=== PATIENT | male | born 1985 | race Caucasian/White ===

== ENCOUNTER 2017-04-07 22:57 | Emergency (ER) | payer OTHER ==
[~2017-04-07] VITALS: Ht 180.3 cm; Wt 88.0 kg
[~2017-04-07 22:57] MED LIST: CLON.5 PO; NORV10TA PO; ZOFR4TAB3 PO
[2017-04-07 22:59] VITALS: BP 155/99; PULSE 122; RESP 16; TEMP 98; O2SAT 100
[2017-04-08] MEDS ORDERED: KETOROLAC TROMETHAMINE 30 MG/ML (IVP) VIAL IV PUSH ONE
[2017-04-08] MEDS ORDERED: ONDANSETRON HCL 4 MG/2 ML VIAL IV ONE
[2017-04-08] MEDS ORDERED: SODIUM CHLOR 0.9% 1000 ML INJ 1,000 ML IV ONE
[2017-04-08 00:21] VITALS: O2SAT 98
--- NOTE | 2017-04-08 00:30 | PD ---
HPI Chief Complaint: Flank/Kidney Pain Time Seen by Provider: 23:44 Travel History International Travel<30 days: No Contact w/Intl Traveler<30days: No Traveled to known affect area: No History of Present Illness HPI The patient is a 31 year old male who presents to the [facility] emergency department with a history of left flank pain and a history of kidney stones he reports that his left flank pain recurred at approximate 4 PM today. He reports the pain has been constant and sharp in character. He reports that it radiates around to the left groin. The patient reports that he last saw his urologist, , a month ago. He reports that at that time he underwent ultrasound and a CT scan of the abdomen and pelvis. The patient reports that he last underwent lithotripsy and ureteral stent placement in November 2015. The patient reports that he took a tramadol for pain prior to arrival. He reports that he is prescribed this related to his chronic back pain. He denies having any hematuria, dysuria, urinary frequency, or urinary urgency associated with this. He reports having nausea but no vomiting or diarrhea. He reports that he last moved his bowels earlier today. He denies having any blood in his stool or black or tarry stools. The patient denies any recent fevers, cough, congestion, neck pain, chest pain, shortness of breath, or neurologic symptoms. [facility] Past Medical History Narrative Medical The patient's past medical history is significant for hypertension, anxiety disorder, ureterolithiasis ADHD: Yes Blood Disorders: No Anxiety: Yes Depression: Yes Cancer: No Cardiovascular Problems: Yes (HIGH BP) Diabetes: No Diminished Hearing: No Endocrine: No Genitourinary: Yes (KIDNEY STONES) Hepatitis: No Hiatal Hernia: No Hypertension: Yes Immune Disorder: No Implanted Vascular Access Dvce: No Kidney Stones: Yes Musculoskeletal: No Neurologic: No Psychiatric: No Reproductive: No Respiratory: No Immunizations Current: Yes Thyroid Disease: No Tetanus Vaccination: < 5 Years Influenza Vaccination: No PNEUMOCCOCAL Vaccine (Year): 2 Past Surgical History Narrative Surgical The patient's past surgical history is significant for a ureteral stent placement, lithotripsy, nephrostomy tube placement. Abdominal Surgery: No AICD: No Body Medical Devices: NEPHROSTOMY TUBE Cardiac Surgery: No Ear Surgery: No Endocrine Surgery: No Eye Surgery: No Genitourinary Surgery: Yes (Multiple for kidney stones) Gynecologic Surgery: No Joint Replacement: No Oral Surgery: No Pacemaker: No Thoracic Surgery: No Other Surgery: Yes (Lithotripsy) Social History Alcohol Use: No Tobacco Use: No Substance Use: No Allergies-Medications (Allergen,Severity, Reaction): Coded Allergies: Penicillin (Verified Allergy, Severe, HIVES, 03/21/16) Reglan (Verified Allergy, Severe, PANIC ATTACK, 03/21/16) Ceclor (Verified Allergy, Intermediate, HIVES, 03/21/16) Reported Meds & Prescriptions Reported Meds & Active Scripts Active Lortab (Hydrocodone-Acetaminophen) 5-325 Mg Tab 1 Tab PO Q6H PRN Zofran ODT (Ondansetron HCl) 4 Mg Tab 4 Mg PO Q6 PRN May substitute, non-ODT form Norvasc (Amlodipine Besylate) 10 Mg Tab 10 Mg PO DAILY Reported Klonopin (Clonazepam) 0.5 Mg Tab 0.5 Mg PO DAILY Review of Systems Except as stated in HPI: all other systems reviewed are Neg General / Constitutional: No: Fever Eyes: No: Visual changes HENT: No: Headaches Cardiovascular: No: Chest Pain or Discomfort Respiratory: No: Shortness of Breath Gastrointestinal: Positive: Nausea, Abdominal Pain, No: Vomiting, Diarrhea, Hematemesis, Hematochezia, Constipation, Changes in Bowel Habits, Indigestion, Loss of Appetite Genitourinary: Positive: Flank Pain (left flank), No: Urgency, Frequency, Dysuria, Hematuria Musculoskeletal: No: Pain Skin: No Rash Neurologic: No: Weakness, Focal Abnormalities, Change in Mentation, Slurred Speech, Sensory Disturbance Psychiatric: No: Depression Endocrine: No: Polydipsia Hematologic/Lymphatic: No: Easy Bruising Physical Exam Narrative General: The patient is a well-developed well-nourished male in no acute distress. Head and Neck exam: Head is normocephalic atraumatic. Eyes: EOMI, pupils are equal round and reactive to light. Nose: Midline septum with pink mucous membranes Mouth: Dentition unremarkable. Moist mucus membranes. Posterior oropharynx is not erythematous. No tonsillar hypertrophy. Uvula midline. Airway patent. Neck: No palpable lymphadenopathy. No nuchal rigidity. No thyromegaly. Cardiovascular: Regular rate and rhythm without murmurs, gallops, or rubs. Lungs: Clear to auscultation bilaterally. No wheezes, rhonchi, or rales. Abdomen: Soft, without tenderness to palpation in all 4 quadrants of the abdomen. No guarding, rebound, or rigidity. Normal bowel sounds are audible. No tenderness on palpation of McBurney's point. Negative Cicero sign. Extremities: No clubbing, cyanosis, or edema. 2+ pulses in all 4 extremities. No calf tenderness on palpation. Back: No spinous process tenderness to palpation. Left-sided CVA tenderness on palpation. Neurologic Exam: Grossly nonfocal. Skin Exam: No rash noted. Intact skin that is warm and dry. Data Data Last Documented VS Vital Signs Date Time Temp Pulse Resp B/P Pulse Ox O2 Delivery O2 Flow Rate FiO2 04/08/17 00:21 98 Room Air 04/07/17 22:59 98.0 122 16 155/99 Orders Complete Blood Count With Diff (04/07/17 23:55) Comprehensive Metabolic Panel (04/07/17 23:55) Lipase (04/07/17 23:55) Urinalysis - C+S If Indicated (04/07/17 23:55) Iv Access Insert/Monitor (04/07/17 23:55) Ecg Monitoring (04/07/17 23:55) Oximetry (04/07/17 23:55) Sodium Chlor 0.9% 1000 Ml Inj (Ns 1000 M (04/08/17 00:00) Ondansetron Inj (Zofran Inj) (04/08/17 00:00) Ketorolac Inj (Toradol Inj) (04/08/17 00:00) Morphine Inj (Morphine Inj) (04/08/17 01:00) Ondansetron Inj (Zofran Inj) (04/08/17 01:00) Sodium Chlorid 0.9% 500 Ml Inj (Ns 500 M (04/08/17 01:00) Labs Laboratory Tests Test 04/07/17 23:45 White Blood Count 14.1 TH/MM3 Red Blood Count 6.07 MIL/MM3 Hemoglobin 17.4 GM/DL Hematocrit 50.5 % Mean Corpuscular Volume 83.1 FL Mean Corpuscular Hemoglobin 28.6 PG Mean Corpuscular Hemoglobin 34.4 % Concent Red Cell Distribution Width 13.1 % Platelet Count 221 TH/MM3 Mean Platelet Volume 10.7 FL Neutrophils (%) (Auto) 79.7 % Lymphocytes (%) (Auto) 13.7 % Monocytes (%) (Auto) 6.0 % Eosinophils (%) (Auto) 0.5 % Basophils (%) (Auto) 0.1 % Neutrophils # (Auto) 11.3 TH/MM3 Lymphocytes # (Auto) 1.9 TH/MM3 Monocytes # (Auto) 0.8 TH/MM3 Eosinophils # (Auto) 0.1 TH/MM3 Basophils # (Auto) 0.0 TH/MM3 CBC Comment DIFF FINAL Differential Comment Urine Color YELLOW Urine Turbidity CLEAR Urine pH 7.5 Urine Specific [place] 1.028 Urine Protein 30 mg/dL Urine Glucose (UA) NEG mg/dL Urine Ketones 40 mg/dL Urine Occult Blood NEG Urine Nitrite NEG Urine Bilirubin NEG Urine Urobilinogen LESS THAN 2.0 MG/DL Urine Leukocyte Esterase NEG Urine RBC 2 /hpf Urine WBC LESS THAN 1 /hpf Urine Mucus FEW /lpf Microscopic Urinalysis Comment CULT NOT INDICATED Sodium Level 139 MEQ/L Potassium Level 4.5 MEQ/L Chloride Level 102 MEQ/L Carbon Dioxide Level 29.9 MEQ/L Anion Gap 7 MEQ/L Blood Urea Nitrogen 14 MG/DL Creatinine 0.93 MG/DL Estimat Glomerular Filtration 94 ML/MIN Rate Random Glucose 101 MG/DL Calcium Level 10.4 MG/DL Total Bilirubin 0.6 MG/DL Aspartate Amino Transf 25 U/L (AST/SGOT) Alanine Aminotransferase 32 U/L (ALT/SGPT) Alkaline Phosphatase 135 U/L Total Protein 8.3 GM/DL Albumin 4.7 GM/DL Lipase 71 U/L MDM Medical Decision Making Medical Screen Exam Complete: Yes Emergency Medical Condition: Yes Medical Record Reviewed: Yes Differential Diagnosis Recurrent ureteral calculi, versus renal colic, versus drug-seeking behavior, versus musculoskeletal strain of the back Narrative Course During the course of the patients emergency department visit, the patients history, examination, and differential diagnosis were reviewed with the patient. The patient had IV access obtained and blood work sent for analysis. The patient was put on a monitoring and evaluation advisor with oximetry and blood pressure monitoring. As the patient recently underwent ultrasound and CT scan of the abdomen and pelvis and has had numerous CT scans in the past, I will attempt to avoid further radiation therapy at this time. We will assess the patient's kidney function and evaluated urinalysis for signs of blood that would suggest a ureteral calculi. The patient was initially provided Toradol 15 mg IV, normal saline 1 L IV fluid bolus, Zofran 4 mg IV. The patients laboratory studies were reviewed and remarkable for a white count of 14.1, hemoglobin 17.4, platelets 221 with 79.7 neutrophils, CMP is remarkable for a calcium of 10.4, alkaline phosphatase 135, total protein 8.3, lipase 71, urinalysis shows 30 protein, 40 ketones, few mucus, culture not indicated. The patient was given morphine 4 mg IV, Zofran 4 mg IV, and additional normal saline bolus of 500 mL. The patient will be discharged home with close follow-up with his urologist. The patient was instructed to avoid calcium rich foods and any supplements that contains calcium. The patient was instructed to stop tramadol and instead take Lortab as needed for pain. He was also given a prescription for Flomax. The patient is resting comfortably and feels better, is alert and in no distress. The patients results and examination findings were discussed with the patient. The repeat examination is unremarkable and benign. The history, exam, diagnostic testing, and current condition do not suggest any significant pathology to warrant further testing, continued ED treatment, admission, or surgical evaluation at this point. The vital signs have been stable. The patient does not have uncontrollable pain, intractable vomiting, or other significant symptoms. The patient's condition is stable and appropriate for discharge. The patient will pursue further outpatient evaluation with a primary care physician or other designated or consulting physician as indicated in the discharge instructions. The patient expressed understanding and was agreeable with this plan. Diagnosis Primary Impression: Acute left flank pain Referrals: Ollie Vasquez MD 2 days Patient Instructions: Flank Pain (ED), General Instructions, Kidney Stones (ED) Med/Other Pt SpecificInfo: Prescription(s) given Scripts Tamsulosin (Flomax)0.4 Mg Cap0.4 Mg PO HS #14 CAP Ref 0 Prov:Vani Lazo MD 04/08/17 Hydrocodone-Acetaminophen (Lortab)5-325 Mg Tab1 Tab PO Q6H PRN (PAIN) #12 TAB Ref 0 Prov:Vani Lazo MD 04/08/17 Disposition: 01 DISCHARGE HOME Condition: Stable Vani Lazo MD April 08, 2017 00:30
[2017-04-08 00:39] LABS: AUTOMATED NEUTROPHIL # 11.3 TH/MM3 (1.8-7.7); BASOPHIL % 0.1 % (0.0-2.0); EOSINOPHIL # 0.1 TH/MM3 (0-0.4); EOSINOPHIL % 0.5 % (0.0-4.0); HEMATOCRIT 50.5 % (39.0-51.0); HEMO FLAGS DIFF FINAL; LYMPH % 13.7 % (9.0-44.0); LYMPHOCYTE # 1.9 TH/MM3 (1.0-4.8); MEAN CELL VOLUME 83.1 FL (80.0-100.0); MEAN CORPUSCULAR HEMOGLOBIN 28.6 PG (27.0-34.0); MEAN CORPUSCULAR HGB CONC 34.4 % (32.0-36.0); NEUT % 79.7 % (16.0-70.0); PLATELET COUNT 221 TH/MM3 (150-450); RED BLOOD COUNT 6.07 MIL/MM3 (4.50-5.90); RED CELL DISTRIBUTION WIDTH 13.1 % (11.6-17.2); WHITE BLOOD COUNT 14.1 TH/MM3 (4.0-11.0)
[2017-04-08 00:58] LABS: ALT (GPT) 32 U/L (12-78); ANION GAP 7 MEQ/L (5-15); AST (GOT) 25 U/L (15-37); BICARBONATE 29.9 MEQ/L (21.0-32.0); BLOOD UREA NITROGEN 14 MG/DL (7-18); CHLORIDE 102 MEQ/L (98-107); GLOMERULAR FILTRATION RATE 94 ML/MIN (>89); POTASSIUM 4.5 MEQ/L (3.5-5.1); SODIUM (NA) 139 MEQ/L (136-145)
[2017-04-08 01:00] LABS: ALKALINE PHOSPHATASE 135 U/L (45-117); TOTAL BILIRUBIN ADULT 0.6 MG/DL (0.2-1.0)
[2017-04-08] MEDS ORDERED: SODIUM CHLORID 0.9% 500 ML INJ 500 ML IV ONE (01:00)
[2017-04-08] MEDS ORDERED: ONDANSETRON HCL 4 MG/2 ML VIAL IV PUSH ONE (01:00)
[2017-04-08] MEDS ORDERED: MORPHINE SULFATE 4 MG/ML INJ IV PUSH ONE (01:00)
[2017-04-08] MEDS ORDERED: HYDR-3533 PO (01:32)
[2017-04-08 01:38] LABS: BLOOD, URINE NEG (NEG); GLUCOSE,URINE NEG (NEG); KETONE, URINE 40 mg/dL (NEG); MUCUS URINE FEW /lpf (OCC); NITRITE,URINE NEG (NEG); PH, URINE 7.5 (5.0-8.5); URINE COLOR YELLOW (YELLW/STRAW)
[2017-04-08 02:26] LABS: COMMENT (UR) CULT NOT INDICATED; CULTURE IF INDICATED CULT NOT INDICATED
[2017-04-08] MEDS ORDERED: TAMS5CAP PO (02:31)
== END 2017-04-08 03:17 | disposition home or self-care (01) ==
LOC: NEPE 22:57
DX: R10.84 Generalized abdominal pain (principal); I10 Essential (primary) hypertension; F41.9 Anxiety disorder, unspecified; Z87.442 Personal history of urinary calculi
CPT/HCPCS: 80053; 81001; 83690; 85025; 96374; 96375; 96376; 99284; J1885; J2270; J2405; J7030; J7040

== ENCOUNTER 2017-10-01 11:53 | Observation (INO) | payer OTHER ==
[~2017-10-01] VITALS: Ht 185.4 cm; Wt 100.0 kg
[~2017-10-01 11:53] MED LIST changes: +HYDR-3533 PO; +TAMS5CAP PO
[2017-10-01 12:11] VITALS: BP 138/84; PULSE 90; RESP 14; TEMP 97.8; O2SAT 96
[2017-10-01] MEDS ORDERED: SODIUM CHLOR 0.9% 1000 ML INJ 1,000 ML IV ONE (12:15)
[2017-10-01] MEDS ORDERED: LORazepam 2 MG/ML VIAL IVS ONE (12:15)
[2017-10-01] MEDS ORDERED: SODIUM CHLORIDE 0.9% FLUSH 10 ML FLUSH IVF PRN (12:15)
[2017-10-01 12:20] VITALS: O2SAT 97
[2017-10-01] MEDS ORDERED: FOSPHENYTOIN INJ 1,000 MGPE in SODIUM CHLORIDE 0.9% INJ 50 ML IV ONE (12:30)
[2017-10-01 12:33] LABS: AUTOMATED NEUTROPHIL # 6.1 TH/MM3 (1.8-7.7); BASOPHIL % 0.5 % (0.0-2.0); EOSINOPHIL # 0.1 TH/MM3 (0-0.4); EOSINOPHIL % 0.8 % (0.0-4.0); HEMATOCRIT 46.8 % (39.0-51.0); HEMOGLOBIN 16.2 GM/DL (13.0-17.0); LYMPHOCYTE # 1.6 TH/MM3 (1.0-4.8); MEAN CELL VOLUME 85.4 FL (80.0-100.0); MEAN CORPUSCULAR HEMOGLOBIN 29.5 PG (27.0-34.0); MEAN CORPUSCULAR HGB CONC 34.5 % (32.0-36.0); MEAN PLATELET VOLUME 9.2 FL (7.0-11.0); MONO % 6.5 % (0.0-8.0); MONOCYTE # 0.5 TH/MM3 (0-0.9); NEUT % 73.2 % (16.0-70.0); PLATELET COUNT 227 TH/MM3 (150-450); RED BLOOD COUNT 5.48 MIL/MM3 (4.50-5.90); RED CELL DISTRIBUTION WIDTH 12.9 % (11.6-17.2); WHITE BLOOD COUNT 8.4 TH/MM3 (4.0-11.0)
[2017-10-01 12:52] LABS: ALBUMIN 3.8 GM/DL (3.4-5.0); AST (GOT) 17 U/L (15-37); BICARBONATE 23.5 MEQ/L (21.0-32.0); BLOOD UREA NITROGEN 8 MG/DL (7-18); CALCIUM 8.7 MG/DL (8.5-10.1); CHLORIDE 109 MEQ/L (98-107); CREATININE 1.16 MG/DL (0.60-1.30); GLOMERULAR FILTRATION RATE 73 ML/MIN (>89); GLUCOSE,RANDOM 117 MG/DL (74-106); SODIUM (NA) 141 MEQ/L (136-145)
[2017-10-01 12:53] LABS: ALT (GPT) 30 U/L (12-78)
[2017-10-01 12:55] LABS: ALKALINE PHOSPHATASE 90 U/L (45-117); TOTAL BILIRUBIN ADULT 0.5 MG/DL (0.2-1.0); TOTAL PROTEIN 7.1 GM/DL (6.4-8.2)
[2017-10-01] MEDS ORDERED: GABA300C5 PO (13:08)
[2017-10-01] MEDS ORDERED: LOSA25TA PO (13:08)
[2017-10-01] MEDS ORDERED: AMLO10TA2 PO (13:08)
[2017-10-01] MEDS ORDERED: TRAM50TA PO (13:08)
[2017-10-01] MEDS ORDERED: ESCI10TA PO (13:08)
[2017-10-01] MEDS ORDERED: ALPR0.5T3 PO (13:08)
--- NOTE | 2017-10-01 13:29 | RADRPT ---
EXAM DATE/TIME: 10/01/2017 13:04 [place] COMPARISON: No previous studies available for comparison. INDICATIONS : Syncope today. RADIATION DOSE: 56.35 CTDIvol (mGy) MEDICAL HISTORY : Seizures. Hypertension. Renal calculi. SURGICAL HISTORY : None. ENCOUNTER: Initial ACUITY: 1 day PAIN SCALE: 0/10 LOCATION: cranial TECHNIQUE: Multiple contiguous axial images were obtained of the head. Using automated exposure control and adj ustment of the mA and/or kV according to patient size, radiation dose was kept as low as reasonably a chievable to obtain optimal diagnostic quality images. DICOM format image data is available electro nically for review and comparison. FINDINGS: CEREBRUM: The ventricles are normal for age. No evidence of midline shift, mass lesion, hemorrhage or acute in farction. No extra-axial fluid collections are seen. POSTERIOR FOSSA: The cerebellum and brainstem are intact. The 4th ventricle is midline. The cerebellopontine angle i s unremarkable. EXTRACRANIAL: The visualized portion of the orbits is intact. SKULL: The calvaria is intact. No evidence of skull fracture. CONCLUSION: No acute disease. Walker Romo MD on October 01, 2017 at 13:27 Board Certified Radiologist. This report was verified electronically.
--- NOTE | 2017-10-01 13:38 | PD ---
HPI Chief Complaint: Seizure Time Seen by Provider: 12:17 Travel History International Travel<30 days: No Contact w/Intl Traveler<30days: No Traveled to known affect area: No History of Present Illness HPI 31-year-old male brought in by EMS status post unwitnessed seizure while at work at [employer]. Patient is now postictal. He has an abrasion to the right anterior scalp. He is alert and answering questions appropriately. Patient states he had a headache earlier but now has no headache or other pain. He does have a minor bite to the right posterior lateral tongue. He denies dental injury. He denies any other pain or injury. He is not nauseous. 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 Patient denies alcohol use. Denies any drug use. Patient states he had a seizure 6 years ago which was thought to be due to some medication he was on at the time. He was never diagnosed with seizure disorder, previous to today. Patient is allergic to cefaclor, metoclopramide, and penicillin. PFSH Past Medical History ADHD: Yes Blood Disorders: No Anxiety: Yes Depression: Yes Cancer: No Cardiovascular Problems: Yes (HIGH BP) Diabetes: No Diminished Hearing: No Endocrine: No Gastrointestinal Disorders: No Genitourinary: Yes (KIDNEY STONES) Hepatitis: No Hiatal Hernia: No Hypertension: Yes Immune Disorder: No Implanted Vascular Access Dvce: No Kidney Stones: Yes Musculoskeletal: No Neurologic: No Psychiatric: No Reproductive: No Respiratory: No Immunizations Current: Yes Seizures: Yes Thyroid Disease: No PNEUMOCCOCAL Vaccine (Year): 2 Past Surgical History Abdominal Surgery: No AICD: No Body Medical Devices: NEPHROSTOMY TUBE Cardiac Surgery: No Ear Surgery: No Endocrine Surgery: No Eye Surgery: No Genitourinary Surgery: Yes (Multiple for kidney stones) Gynecologic Surgery: No Joint Replacement: No Oral Surgery: No Pacemaker: No Thoracic Surgery: No Other Surgery: Yes (Lithotripsy) Social History Alcohol Use: No Tobacco Use: Yes (pack every 3 days ) Substance Use: No Allergies-Medications (Allergen,Severity, Reaction): Coded Allergies: metoclopramide (Unverified Allergy, Severe, PANIC ATTACK, 07/14/17) penicillin G (Unverified Allergy, Severe, HIVES, 07/14/17) cefaclor (Unverified Allergy, Intermediate, HIVES, 07/14/17) Reported Meds & Prescriptions Reported Meds & Active Scripts Active Reported Amlodipine (Amlodipine Besylate) 10 Mg Tab 10 Mg PO DAILY Losartan (Losartan Potassium) 25 Mg Tab 25 Mg PO DAILY Escitalopram (Escitalopram Oxalate) 10 Mg Tab 10 Mg PO DAILY Gabapentin 300 Mg Cap 300 Mg PO HS Alprazolam 0.5 Mg Tab 0.5 Mg PO Q8H PRN Tramadol (Tramadol HCl) 50 Mg Tab 50 Mg PO Q8H PRN Review of Systems Except as stated in HPI: all other systems reviewed are Neg General / Constitutional: No: Fever Eyes: No: Visual changes HENT: No: Headaches Cardiovascular: No: Chest Pain or Discomfort Respiratory: No: Shortness of Breath Gastrointestinal: No: Abdominal Pain Genitourinary: No: Dysuria Musculoskeletal: No: Pain Skin: No Rash Neurologic: Positive: Seizures (see history present illness), No: Weakness Psychiatric: No: Depression Endocrine: No: Polydipsia Hematologic/Lymphatic: No: Easy Bruising Physical Exam Narrative GENERAL: Patient appears postictal and in mild distress. SKIN: Warm and diaphoretic. Mild pallor. He has superficial abrasion to the right anterior upper forehead. No other signs of trauma noted. HEAD: Atraumatic. Normocephalic. Mild tenderness over the right upper forehead without obvious bony involvement. EYES: Pupils equal and round. No scleral icterus. No injection or drainage. No nystagmus. ENT: No nasal bleeding or discharge. Mucous membranes pink and moist. No dental injury. She has a small superficial bite [place] to the right lateral posterior tongue not requiring closure. Pharynx is clear. Airway is patent. NECK: Trachea midline. No bony tenderness or step-off. Range of motion is full and supple. CARDIOVASCULAR: Regular rate and rhythm. RESPIRATORY: No accessory muscle use. Clear to auscultation. Breath sounds equal bilaterally. GASTROINTESTINAL: Abdomen soft, non-tender, nondistended. Hepatic and splenic margins not palpable. MUSCULOSKELETAL: Extremities without clubbing, cyanosis, or edema. No obvious deformities. NEUROLOGICAL: Awake and alert. No obvious cranial nerve deficits. Motor grossly within normal limits. Five out of 5 muscle strength in the arms and legs. Normal speech. PSYCHIATRIC: Appropriate mood and affect; insight and judgment normal. Data Data Last Documented VS Vital Signs Date Time Temp Pulse Resp B/P (MAP) Pulse Ox O2 Delivery O2 Flow Rate FiO2 10/01/17 14:25 80 27 137/75 (95) 97 Room Air 10/01/17 12:11 97.8 Orders Orders Complete Blood Count With Diff (10/01/17 12:15) Alcohol (Ethanol) (10/01/17 12:15) Drug Screen, Random Urine (10/01/17 12:15) Electrocardiogram (10/01/17 ) Ct Brain W/O Iv Contrast(Rout) (10/01/17 ) Blood Glucose (10/01/17 12:15) Ecg Monitoring (10/01/17 12:15) Iv Access Insert/Monitor (10/01/17 12:15) Oximetry (10/01/17 12:15) Comprehensive Metabolic Panel (10/01/17 12:15) Sodium Chlor 0.9% 1000 Ml Inj (Ns 1000 M (10/01/17 12:15) Sodium Chloride 0.9% Flush (Ns Flush) (10/01/17 12:15) Lorazepam Inj (Ativan Inj) (10/01/17 12:15) Urinalysis - C+S If Indicated (10/01/17 12:15) Fosphenytoin Inj (Cerebyx Inj) (10/01/17 12:30) Admit Order (Ed Use Only) (10/01/17 15:36) Labs Laboratory Tests Test 10/01/17 12:28 10/01/17 14:30 White Blood Count 8.4 TH/MM3 Red Blood Count 5.48 MIL/MM3 Hemoglobin 16.2 GM/DL Hematocrit 46.8 % Mean Corpuscular Volume 85.4 FL Mean Corpuscular Hemoglobin 29.5 PG Mean Corpuscular Hemoglobin Concent 34.5 % Red Cell Distribution Width 12.9 % Platelet Count 227 TH/MM3 Mean Platelet Volume 9.2 FL Neutrophils (%) (Auto) 73.2 % Lymphocytes (%) (Auto) 19.0 % Monocytes (%) (Auto) 6.5 % Eosinophils (%) (Auto) 0.8 % Basophils (%) (Auto) 0.5 % Neutrophils # (Auto) 6.1 TH/MM3 Lymphocytes # (Auto) 1.6 TH/MM3 Monocytes # (Auto) 0.5 TH/MM3 Eosinophils # (Auto) 0.1 TH/MM3 Basophils # (Auto) 0.0 TH/MM3 CBC Comment DIFF FINAL Differential Comment Blood Urea Nitrogen 8 MG/DL Creatinine 1.16 MG/DL Random Glucose 117 MG/DL Total Protein 7.1 GM/DL Albumin 3.8 GM/DL Calcium Level 8.7 MG/DL Alkaline Phosphatase 90 U/L Aspartate Amino Transf (AST/SGOT) 17 U/L Alanine Aminotransferase (ALT/SGPT) 30 U/L Total Bilirubin 0.5 MG/DL Sodium Level 141 MEQ/L Potassium Level 3.6 MEQ/L Chloride Level 109 MEQ/L Carbon Dioxide Level 23.5 MEQ/L Anion Gap 9 MEQ/L Estimat Glomerular Filtration Rate 73 ML/MIN Ethyl Alcohol Level LESS THAN 3 MG/DL Urine Color YELLOW Urine Turbidity CLEAR Urine pH 6.0 Urine Specific [place] 1.018 Urine Protein 30 mg/dL Urine Glucose (UA) NEG mg/dL Urine Ketones TRACE mg/dL Urine Occult Blood SMALL Urine Nitrite NEG Urine Bilirubin NEG Urine Urobilinogen LESS THAN 2.0 MG/DL Urine Leukocyte Esterase NEG Urine RBC 5 /hpf Urine WBC 1 /hpf Urine Mucus FEW /lpf Microscopic Urinalysis Comment CULT NOT INDICATED Urine Opiates Screen NEG Urine Barbiturates Screen NEG Urine Amphetamines Screen NEG Urine Benzodiazepines Screen POS Urine Cocaine Screen NEG Urine Cannabinoids Screen NEG MDM Medical Decision Making Medical Screen Exam Complete: Yes Emergency Medical Condition: Yes Medical Record Reviewed: Yes Differential Diagnosis New-onset seizure. Headache. Intracranial bleed. Electrolyte balance. Alcohol withdrawal. Narrative Course Patient appears postictal medically stable at time of exam. Labs ordered including CBC, CMP, urinalysis, serum alcohol level, urine drug screen. EKG shows sinus rhythm with no significant findings. IV access is obtained and the patient is given thousand and a normal saline bolus, 1000 mg fosphenytoin IV, and [address] scan of the head is ordered. CT scan shows no acute process per radiologist. CBC is unremarkable. CMP is unremarkable except chloride of 109, GFR 73, random glucose 117. Serum alcohol is less than 3. Urinalysis shows no signs of infection. Urine tox screen is negative except for benzodiazepines which he was given upon arrival. Further history is noted by the nursing staff that the patient was taking Xanax 1 mg up to 3 times daily an anxiety disorder which he stopped one week ago. Patient is discussed with Dr. Celis who recommends discussing the patient with a neurologist for plan of discharge and follow-up. Call was placed to Dr. Aguilar, neurologist harpoon engagement planning operator, who did not feel further antiseizure medicines were warranted at this time, recommends admitting the patient to observation, get an MRI as well as EEG and consult him for follow-up. Call was placed to the residents for admission to observation. Patient was discussed with Dr. Blevins, who agreed to admit patient to observation. Diagnosis Primary Impression: Single unprovoked seizure Admitting Information Admitting Physician Requests: Observation Condition: Stable Travis Ortiz Oct 01, 2017 13:38
[2017-10-01 14:25] VITALS: BP 137/75; PULSE 80; RESP 27; O2SAT 97
[2017-10-01 14:51] LABS: BILIRUBIN, URINE NEG (NEG); BLOOD, URINE SMALL (NEG); GLUCOSE,URINE NEG (NEG); KETONE, URINE TRACE mg/dL (NEG); MUCUS URINE FEW /lpf (OCC); NITRITE,URINE NEG (NEG); URINE COLOR YELLOW (YELLW/STRAW); URINE LEUKOCYTE ESTERASE NEG (NEG)
[2017-10-01] MEDS ORDERED: ACETAMINOPHEN 325 MG TAB PO PRN (15:45)
[2017-10-01] MEDS ORDERED: ONDANSETRON HCL 4 MG/2 ML VIAL IV PRN (15:45)
[2017-10-01] MEDS ORDERED: LORazepam 2 MG/ML VIAL IV PUSH PRN (15:45)
[2017-10-01] MEDS ORDERED: SODIUM CHLORIDE 0.9% FLUSH 10 ML FLUSH IV FLUSH PRN (15:45)
--- NOTE | 2017-10-01 16:04 | HHI.HP ---
HPI Service [facility]ists Primary Care Physician Alvarado Ba MD Admission Diagnosis Unprovoked Seizure/New Onset Chief Complaint: seizure Travel History International Travel<30 Days: No Contact w/Intl Traveler <30 Da: No Traveled to Known Affected Are: No History of Present Illness Pt is 31 yo with anxiety/panic d/o, htn, nephrolithiasis problems. Was at work today and while standing and just talking with a friend, suddenly fell to the ground and began having a tonic clonic type sz for unclear length of time. abrasions on occipital scalp and right forehead. When he awoke was confused and post ictal. no loss of bowel/bladder function but bit tongue. Pt stopped taking his xanax about 4 days ago. He was taking it tid prescribed by psychiatry. He also took an ultram this AM for "left flank/hydro Pain". hasn't taken one in awhile but apparently had a sz 6 yrs ago felt related to ultram. Review of Systems Other seizure Past Family Social History Past Medical History nephrolithiasis since 2009 at [place] pt has had multiple cysto with stent. had nephrotomy and nephrostomy tube placed. lithostripsy. 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" sz 6yrs ago related to "ultram" anxiety/panic Reported Medications Amlodipine (Amlodipine Besylate) 10 Mg Tab 10 Mg PO DAILY Losartan (Losartan Potassium) 25 Mg Tab 25 Mg PO DAILY Escitalopram (Escitalopram Oxalate) 10 Mg Tab 10 Mg PO DAILY Gabapentin 300 Mg Cap 900 Mg PO HS Alprazolam 0.5 Mg Tab 0.5 Mg PO Q8H PRN Tramadol (Tramadol HCl) 50 Mg Tab 50 Mg PO Q8H PRN Allergies: Coded Allergies: metoclopramide (Unverified Allergy, Severe, PANIC ATTACK, 07/14/17) penicillin G (Unverified Allergy, Severe, HIVES, 07/14/17) cefaclor (Unverified Allergy, Intermediate, HIVES, 07/14/17) Family History nc Social History 1/4ppd tobacco very rare etoh Physical Exam Vital Signs abrasions right forehead and post scalp oriented heart reg lung cta abd s/nt ext no edema Vital Signs Date Time Temp Pulse Resp B/P (MAP) Pulse Ox O2 Delivery O2 Flow Rate FiO2 11/2/17 14:25 80 27 137/75 (95) 97 Room Air 10/01/17 12:20 97 Room Air 10/01/17 12:13 78 14 96 Room Air 10/01/17 12:11 97.8 90 14 138/84 (102) 96 Laboratory Laboratory Tests Test 10/01/17 12:28 10/01/17 14:30 White Blood Count 8.4 Red Blood Count 5.48 Hemoglobin 16.2 Hematocrit 46.8 Mean Corpuscular Volume 85.4 Mean Corpuscular Hemoglobin 29.5 Mean Corpuscular Hemoglobin Concent 34.5 Red Cell Distribution Width 12.9 Platelet Count 227 Mean Platelet Volume 9.2 Neutrophils (%) (Auto) 73.2 Lymphocytes (%) (Auto) 19.0 Monocytes (%) (Auto) 6.5 Eosinophils (%) (Auto) 0.8 Basophils (%) (Auto) 0.5 Neutrophils # (Auto) 6.1 Lymphocytes # (Auto) 1.6 Monocytes # (Auto) 0.5 Eosinophils # (Auto) 0.1 Basophils # (Auto) 0.0 CBC Comment DIFF FINAL Differential Comment Blood Urea Nitrogen 8 Creatinine 1.16 Random Glucose 117 Total Protein 7.1 Albumin 3.8 Calcium Level 8.7 Alkaline Phosphatase 90 Aspartate Amino Transf (AST/SGOT) 17 Alanine Aminotransferase (ALT/SGPT) 30 Total Bilirubin 0.5 Sodium Level 141 Potassium Level 3.6 Chloride Level 109 Carbon Dioxide Level 23.5 Anion Gap 9 Estimat Glomerular Filtration Rate 73 Ethyl Alcohol Level LESS THAN 3 Urine Color YELLOW Urine Turbidity CLEAR Urine pH 6.0 Urine Specific [place] 1.018 Urine Protein 30 Urine Glucose (UA) NEG Urine Ketones TRACE Urine Occult Blood SMALL Urine Nitrite NEG Urine Bilirubin NEG Urine Urobilinogen LESS THAN 2.0 Urine Leukocyte Esterase NEG Urine RBC 5 Urine WBC 1 Urine Mucus FEW Microscopic Urinalysis Comment CULT NOT INDICATED Urine Opiates Screen NEG Urine Barbiturates Screen NEG Urine Amphetamines Screen NEG Urine Benzodiazepines Screen POS Urine Cocaine Screen NEG Urine Cannabinoids Screen NEG Result Diagram: 10/01/17 1228 10/01/17 1228 Caprini VTE Risk Assessment Caprini Risk Assessment Model Point Value = 1 Point Value = 2 Point Value = 3 Point Value = 5 Age 41-60 Minor surgery BMI > 25 kg/m2 Swollen legs Varicose veins or History of unexplained or recurrent spontaneous Oral contraceptives or hormone replacement Sepsis (< 1 month) Serious lung disease, including pneumonia (< 1 month) Abnormal pulmonary function Acute myocardial infarction Congestive heart failure (< 1 month) History of inflammatory bowel disease Medical patient at bed rest Age 61-74 Arthroscopic surgery Major open surgery (> 45 min) Laparoscopic surgery (> 45 min) Malignancy Confined to bed (> 72 hours) Immobilizing plaster cast Central venous access Age >= 75 History of VTE Family history of VTE Factor V Leiden Prothrombin [id number] Lupus anticoagulant Anticardiolipin antibodies Elevated serum homocysteine Heparin-induced thrombocytopenia Other congenital or acquired thrombophilia Stroke (< 1 month) Elective arthroplasty Hip, pelvis, or leg fracture Acute spinal cord injury (< 1 month) Prophylaxis Regimen Total Risk Factor Score Risk Level Prophylaxis Regimen 0-1 Low Early ambulation 2 Moderate Order ONE of the following: *Sequential Compression Device (SCD) *Heparin 5000 units SQ BID 3-4 Higher Order ONE of the following medications: *Heparin 5000 units SQ TID *Enoxaparin/Lovenox 40 mg SQ daily (WT < 150 kg, CrCl > 30 mL/min) *Enoxaparin/Lovenox 30 mg SQ daily (WT < 150 kg, CrCl > 10-29 mL/min) *Enoxaparin/Lovenox 30 mg SQ BID (WT < 150 kg, CrCl > 30 mL/min) AND/OR *Sequential Compression Device (SCD) 5 or more Highest Order ONE of the following medications: *Heparin 5000 units SQ TID (Preferred with Epidurals) *Enoxaparin/Lovenox 40 mg SQ daily (WT < 150 kg, CrCl > 30 mL/min) *Enoxaparin/Lovenox 30 mg SQ daily (WT < 150 kg, CrCl > 10-29 mL/min) *Enoxaparin/Lovenox 30 mg SQ BID (WT < 150 kg, CrCl > 30 mL/min) AND *Sequential Compression Device (SCD) Assessment and Plan Problem List: (1) Single unprovoked seizure ICD Codes: R56.9 - Unspecified convulsions Status: Acute Plan: Pt is 31 yo with anxiety/panic d/o, htn, nephrolithiasis problems. Was at work today and while standing and just talking with a friend, suddenly fell to the ground and began having a tonic clonic type sz for unclear length of time. abrasions on occipital scalp and right forehead. When he awoke was confused and post ictal. no loss of bowel/bladder function but bit tongue. Pt stopped taking his xanax about 4 days ago. He was taking it tid prescribed by psychiatry. He also took an ultram this AM for "left flank/hydro Pain". hasn't taken one in awhile but apparently had a sz 6 yrs ago felt related to ultram. ..so the sz may be related to the ultram in setting of xanax w/d. discussed with DR Novoa MRI/EEG today monitor overnight taper the xanax over the next 4 weeks. If stable overnight and mri/eeg negative then d/c home f/u [address] novoa no driving x 6months. (2) Hypertension ICD Codes: I10 - Hypertension Status: Chronic Teja Blevins MD Oct 01, 2017 16:04
--- NOTE | 2017-10-01 17:44 | MB ---
cc: ABBY DOE DATE OF CONSULTATION 10/01/17 REASON FOR CONSULTATION Seizure. HISTORY OF PRESENT ILLNESS Mr. Warren is a pleasant 31-year-old male who had a seizure today at work. He works at [employer]. He suddenly lost consciousness and had generalized tonic-clonic activity for several minutes after which he was postictal, was confused and had no recall. He is back to normal at the present time. He does relate a seizure several years ago associated with Ultram usage. He states he does take Xanax routinely about 0.5 mg t.i.d. for panic disorder but stopped this abruptly on Thursday. He took some Ultram today for pain as well. He has no history in the past of head trauma or meningitis. No family history of seizure disorder. PAST MEDICAL HISTORY 1. History of hypertension, 2. History of seizures several years ago related to Ultram usage 3. History of ureteral problems requiring surgery since childhood with nephrostomy tube in place 4. Multiple kidney stones, 5. Lithotripsy 6. History of panic attacks ALLERGIES PENICILLIN METOCLOPRAMIDE CECLOR MEDICATIONS At home 1. Amlodipine 2. Losartan 3. Gabapentin 4. Xanax 0.5 mg t.i.d., 5. Tramadol 6. Lexapro. NEUROLOGIC EXAMINATION VITAL SIGNS: Blood pressure 137/75, pulse 80, respiratory rate is 27, temperature 97.8 degrees. Higher cortical function - he is alert, oriented x3. Speech is normal. Cranial nerves intact. Motor exam reveals 5/5 strength of all groups. There is no drift. Reflexes are symmetric. IMAGING STUDIES CT of the brain is normal. LABORATORY DATA White count 8400, hemoglobin 16.2, hematocrit 46.8%, platelet count 227,000. Sodium is 141, potassium 3.6, chloride 109, CO2 24, BUN is 80, creatinine 1.16, GFR 73, glucose 117. Liver function tests are normal. IMPRESSION Seizure, probably related to Xanax withdrawal as well as Ultram usage. RECOMMENDATIONS I do not recommend any long-term anticonvulsants at the present time but would obtain an EEG as well as an MRI of the brain. Would start him on Xanax 0.5 mg b.i.d. for 2 weeks then taper to one a day for 2 weeks and then stop. I have recommended never to take Ultram again for the patient. He should not drive for at least six months frp, being seizure-free. From a neurologic standpoint, if the patient is stable overnight and the MRI and EEG normal, he should be fine to be discharged tomorrow. Follow with me in my office in 1-2 weeks. I told him no driving for 6 months. MD KIKO Villafuerte/ /3:49 PM /5:35 PM
[2017-10-01] MEDS ORDERED: GADODIAMIDE PF 287 MG/ML 20 ML VIAL (for RAD MRI) IVCONTRAST ONE (17:58)
--- NOTE | 2017-10-01 18:21 | RADRPT ---
EXAM DATE/TIME: 10/01/2017 17:41 [place] COMPARISON: CT BRAIN W/O CONTRAST, October 01, 2017, 13:04. INDICATIONS : Seizures. Syncope CONTRAST: 20 cc Omniscan (gadodiamide) IV MEDICAL HISTORY : Hypertension. Hydronephrosis. SURGICAL HISTORY : Ureter untwisted. ENCOUNTER: Initial ACUITY: 1 day PAIN SCORE: 0/10 LOCATION: Head. TECHNIQUE: Multiplanar, multisequence MRI of the brain was performed both prior to and following the administrat ion of paramagnetic contrast. FINDINGS: CEREBRUM: The ventricles are normal for age. No evidence of midline shift, mass lesion, hemorrhage or acute in farction. No extraaxial fluid collections are seen. The pituitary gland and suprasellar cistern are normal in configuration. WHITE MATTER: No significant signal abnormalities are seen in the white matter. POSTERIOR FOSSA: The cerebellum and brainstem are intact. The 4th ventricle is midline. The cerebellopontine angle is unremarkable. The cerebellar tonsils are normal in position. DIFFUSION IMAGING: No focal areas of restricted diffusion are seen. No evidence of acute infarction. EXTRACRANIAL: The visualized portions of the orbits and paranasal sinuses are unremarkable. POST-CONTRAST: No abnormal areas of parenchymal or dural enhancement. No evidence of blood-brain barrier breakdown. CONCLUSION: Unremarkable MRI with no hemorrhage, mass or infarction. Chaka Abdalla MD on October 01, 2017 at 18:17 Board Certified Radiologist. This report was verified electronically.
[2017-10-01] MEDS: SODIUM CHLORIDE 0.9% FLUSH 10 ML FLUSH IV FLUSH SCH (19:51)
[2017-10-01] MEDS: ALPRAZolam 0.5 MG TAB PO SCH (19:51)
[2017-10-01 20:21] VITALS: BP 119/66; PULSE 81; RESP 18; TEMP 98.3; O2SAT 96
[2017-10-01] MEDS ORDERED: GABAPENTIN 300 MG CAP PO SCH (21:00)
[2017-10-02 00:03] VITALS: BP 140/76; PULSE 84; RESP 20; TEMP 98.5; O2SAT 97
[2017-10-02 00:06] VITALS: PULSE 88
[2017-10-02 04:05] VITALS: PULSE 65
[2017-10-02 04:18] VITALS: BP 130/74; PULSE 70; RESP 18; TEMP 98.7; O2SAT 96
[2017-10-02 07:30] VITALS: BP 123/80; PULSE 69; RESP 22; TEMP 98.2; O2SAT 96
--- NOTE | 2017-10-02 07:58 | HHI.PR ---
Subjective Remarks No seizure activity overnight Pt reports some mild occipital headache which has been presented since he hit the ground yesterday Objective Vitals Vital Signs Date Time Temp Pulse Resp B/P (MAP) Pulse Ox O2 Delivery O2 Flow Rate FiO2 10/02/17 07:30 98.2 69 22 123/80 (94) 96 10/02/17 04:18 98.7 70 18 130/74 (92) 96 10/02/17 04:05 65 10/02/17 00:06 88 10/02/17 00:03 98.5 84 20 140/76 (97) 97 10/01/17 20:21 98.3 81 18 119/66 (83) 96 10/01/17 17:06 (95) 10/01/17 14:25 80 27 137/75 (95) 97 Room Air 10/01/17 12:20 97 Room Air 10/01/17 12:13 78 14 96 Room Air 10/01/17 12:11 97.8 90 14 138/84 (102) 96 Result Diagram: 10/01/17 1228 10/01/17 1228 Other Results Laboratory Tests Test 10/01/17 12:28 10/01/17 14:30 White Blood Count 8.4 TH/MM3 Red Blood Count 5.48 MIL/MM3 Hemoglobin 16.2 GM/DL Hematocrit 46.8 % Mean Corpuscular Volume 85.4 FL Mean Corpuscular Hemoglobin 29.5 PG Mean Corpuscular Hemoglobin Concent 34.5 % Red Cell Distribution Width 12.9 % Platelet Count 227 TH/MM3 Mean Platelet Volume 9.2 FL Neutrophils (%) (Auto) 73.2 % Lymphocytes (%) (Auto) 19.0 % Monocytes (%) (Auto) 6.5 % Eosinophils (%) (Auto) 0.8 % Basophils (%) (Auto) 0.5 % Neutrophils # (Auto) 6.1 TH/MM3 Lymphocytes # (Auto) 1.6 TH/MM3 Monocytes # (Auto) 0.5 TH/MM3 Eosinophils # (Auto) 0.1 TH/MM3 Basophils # (Auto) 0.0 TH/MM3 CBC Comment DIFF FINAL Differential Comment Blood Urea Nitrogen 8 MG/DL Creatinine 1.16 MG/DL Random Glucose 117 MG/DL Total Protein 7.1 GM/DL Albumin 3.8 GM/DL Calcium Level 8.7 MG/DL Alkaline Phosphatase 90 U/L Aspartate Amino Transf (AST/SGOT) 17 U/L Alanine Aminotransferase (ALT/SGPT) 30 U/L Total Bilirubin 0.5 MG/DL Sodium Level 141 MEQ/L Potassium Level 3.6 MEQ/L Chloride Level 109 MEQ/L Carbon Dioxide Level 23.5 MEQ/L Anion Gap 9 MEQ/L Estimat Glomerular Filtration Rate 73 ML/MIN Ethyl Alcohol Level LESS THAN 3 MG/DL Urine Color YELLOW Urine Turbidity CLEAR Urine pH 6.0 Urine Specific [place] 1.018 Urine Protein 30 mg/dL Urine Glucose (UA) NEG mg/dL Urine Ketones TRACE mg/dL Urine Occult Blood SMALL Urine Nitrite NEG Urine Bilirubin NEG Urine Urobilinogen LESS THAN 2.0 MG/DL Urine Leukocyte Esterase NEG Urine RBC 5 /hpf Urine WBC 1 /hpf Urine Mucus FEW /lpf Microscopic Urinalysis Comment CULT NOT INDICATED Urine Opiates Screen NEG Urine Barbiturates Screen NEG Urine Amphetamines Screen NEG Urine Benzodiazepines Screen POS Urine Cocaine Screen NEG Urine Cannabinoids Screen NEG Imaging Last Impressions Head CT 10/01/17 0000 Signed Impressions: Service Date/Time: September 13:04 - CONCLUSION: No acute disease. Walker Romo MD Brain MRI 10/01/17 0000 Signed Impressions: Service Date/Time: September 17:41 - CONCLUSION: Unremarkable MRI with no hemorrhage, mass or infarction. Chaka Abdalla MD Objective Remarks General: NAD, AAox3 Chest: CTA Cardiac: Regular Abd: +BS, soft ND/NT Ext: No edema A/P Problem List: (1) Single unprovoked seizure ICD Codes: R56.9 - Unspecified convulsions Status: Acute Plan: - Pt is 31 yo with anxiety/panic d/o, htn, nephrolithiasis problems. Was at work on 10/01 and while standing and just talking with a friend, suddenly fell to the ground and began having a tonic clonic type sz for unclear length of time. He sustained abrasions on occipital scalp and right forehead. When he awoke he was confused and post ictal. no loss of bowel/bladder function but bit tongue. Pt stopped taking his Xanax about 4 days prior to admission. He was taking it TID prescribed by psychiatry. He also took an Ultram on the morning of admission for "left flank/hydro pain." He hasn't taken one in awhile but apparently had a sz 6 yrs ago felt related to Ultram. The sz may be related to the Ultram in setting of xanax w/d. - Neurology following. - MRI (10/01) --> Unremarkable - EEG (10/02) --> pending. - Pt will need to taper the Xanax over the next 4 weeks. - After EEG performed today we will d/c home to f/u [address] Aguilar - NO driving x 6months. (2) Hypertension ICD Codes: I10 - Hypertension Status: Chronic Assessment and Plan Patient examined. Assessment and plan formulated with Maritza Chatman PA-C. I agree with the above. seizure related to xanax w/d and ultram no driving x 6months f/u dr Aguilar this week. Maritza Chatman Oct 02, 2017 07:58 Teja Blevins MD Oct 02, 2017 10:28
[2017-10-02] MEDS: SODIUM CHLORIDE 0.9% FLUSH 10 ML FLUSH IV FLUSH SCH (08:07)
[2017-10-02] MEDS: ALPRAZolam 0.5 MG TAB PO SCH (08:07)
--- NOTE | 2017-10-02 08:10 | HHI.DCPOC ---
Discharge Care Plan Diagnosis: (1) Single unprovoked seizure (2) Hypertension (3) Hyperlipidemia (4) ADHD (attention deficit hyperactivity disorder) Goals to Promote Your Health - Patient is to taper off the Xanax 0.5mg, to be taken twice daily x 2 weeks , then decrease to once daily x 2 weeks, then stop - NO DRIVING for 6 months - He is to followup with Dr. Aguilar in 1 week, call for an appt - He is to followup with his PCP, Dr. Ba, in 1 week, call for an appt. Directions to Meet Your Goals Take your medications as prescribed Follow your dietary instruction Follow activity as directed Keep your appointments as scheduled Take your immunizations and boosters as scheduled If your symptoms worsen call your PCP, if no PCP go to Urgent Care Center or Emergency Room Smoking is Dangerous to Your Health. Avoid second hand smoke Call the 24-hour hour crisis hotline for domestic abuse at Maritza Chatman Oct 02, 2017 08:10
[2017-10-02 08:21] VITALS: PULSE 65
[2017-10-02] MEDS ORDERED: ESCITALOPRAM OXALATE 10 MG TAB PO SCH (09:00)
[2017-10-02] MEDS ORDERED: LOSARTAN 25 MG TAB PO SCH (09:00)
--- NOTE | 2017-10-02 09:13 | EKG ---
Date Performed: 10/01/2017 Time Performed: 12:44:12 PTAGE: 31 years EKG: Sinus rhythm NORMAL ECG WARNING: DATA QUALITY MAY AFFECT INTERPRETATION NO PREVIOUS TRACING DOCTOR: Adam Howard Interpretating Date/Time 10/02/2017 09:11:35
[2017-10-02] MEDS ORDERED: ALPR0.5T3 PO ×3 (10:26→10:31)
--- NOTE | 2017-10-02 11:42 | MG ---
cc: JENNI BURGOS MD Lab No: [id number]____ Date: 10/02/2017 Age: 31 Sex: M Race: __ DATE OF [address] Aguilar MEDICAL HISTORY 1. History of seizures. 2. Hypertension 3. Kidney stones 4. ADHD 5. Depression/anxiety 6. Caffeine and tobacco abuse Presented with unwitnessed seizure, looked postictal when EMS arrived, abrasion on the right anterior scalp, minor bite to the right posterolateral tongue. MEDICATIONS 1. Xanax 2. Gabapentin 3. Cozaar 4. Lexapro 5. Norvasc DESCRIPTION The background rhythm is 5-6 Hz theta superimposed by excess beta activity. During the recording, there was drop out of the background rhythm with more slowing of the background with the appearance of K-complexes transitioning to sleep state. Intermittent muscle and movement artifact are seen during the recording. Hyperventilation did not change the background activity. Photic stimulation did not elicit a driving response. There were no electrographic seizures or epileptiform discharges noted during the recording. INTERPRETATION This is a normal awake, drowsy and asleep EEG. Beta activity is a nonspecific finding that may be related to medication effects like benzos and barbiturates.Absence of electrographic seizures or epileptiform discharges does not rule out the diagnosis of epilepsy. Clinical correlation is recommended. MD JEREMIE Smith/DJL /11:16 AM /11:32 AM [facility]ITAL[facility]ij[facility]
== END 2017-10-02 11:42 | disposition home or self-care (01) ==
LOC: NEPE 11:53 → NEDA 15:39 → NEPHCDU 16:59
PROVIDERS: ADMIT Hospitalist; ATTEND Hospitalist
DX: R56.9 Unspecified convulsions (principal); F13.239 Sedative, hypnotic or anxiolytic dependence with withdrawal, unspecified; I10 Essential (primary) hypertension; E78.5 Hyperlipidemia, unspecified; F90.9 Attention-deficit hyperactivity disorder, unspecified type; N20.0 Calculus of kidney; F41.0 Panic disorder [episodic paroxysmal anxiety]; Z72.0 Tobacco use; Z88.0 Allergy status to penicillin; W19.XXXA Unspecified fall, initial encounter
CPT/HCPCS: 70450; 70553; 80053; 80307; 81001; 85025; 93005; 95819; 96365; 96375; 99285; A9579; G0378; J2060; J2405; J7030; Q2009

== ENCOUNTER 2018-03-04 18:57 | Emergency (ER) | payer SELFPAY ==
[~2018-03-04] VITALS: Ht 182.9 cm; Wt 85.0 kg
[~2018-03-04 18:57] MED LIST changes: +ALPR0.5T3 PO; +AMLO10TA2 PO; -CLON.5 PO; -HYDR-3533 PO; +LOSA25TA PO; -NORV10TA PO; +PERC5TAB12 PO; -ZOFR4TAB3 PO
[2018-03-04 19:45] VITALS: BP 149/90; PULSE 106; RESP 18; TEMP 98.2; O2SAT 99
[2018-03-04] MEDS ORDERED: MORPHINE SULFATE 2 MG/ML SYRINGE IV PUSH ONE ×2 (21:00→22:00)
--- NOTE | 2018-03-04 21:02 | PD ---
HPI Chief Complaint: Flank/Kidney Pain Time Seen by Provider: 20:55 Travel History International Travel<30 days: No Contact w/Intl Traveler<30days: No Traveled to known affect area: No History of Present Illness HPI 32-year-old male with history of nephrolithiasis here for evaluation of left flank pain. The patient reports that the pain started at around 3:00 PM, has been constant, 9 out of 10, radiates to his left lower abdomen, feels like previous kidney stones. There is no modifying factors. No hematuria or dysuria. He has had nausea but no vomiting. He has taken Percocet, Toradol, and Zofran without any relief of symptoms. He reports that he has had several CT scans and is requesting that we do not perform a scan today for fear of radiation exposure. PFSH Past Medical History ADHD: Yes Blood Disorders: No Anxiety: Yes Depression: Yes Cancer: No Cardiovascular Problems: Yes (HIGH BP) Diabetes: No Diminished Hearing: No Endocrine: No Gastrointestinal Disorders: No Genitourinary: Yes (NARROW LEFT URETER) Hepatitis: No Hiatal Hernia: No Hypertension: Yes Immune Disorder: No Implanted Vascular Access Dvce: No Kidney Stones: Yes Medical other: No Musculoskeletal: No Neurologic: No Psychiatric: No Reproductive: No Respiratory: No Immunizations Current: Yes Seizures: Yes Thyroid Disease: No Tetanus Vaccination: < 5 Years Influenza Vaccination: Yes PNEUMOCCOCAL Vaccine (Year): 2 Past Surgical History Abdominal Surgery: No AICD: No Body Medical Devices: NEPHROSTOMY TUBE Cardiac Surgery: No Ear Surgery: No Endocrine Surgery: No Eye Surgery: No Genitourinary Surgery: Yes (URETER REPAIR A , MULTIPLE LITHOTRIPSY) Gynecologic Surgery: No Joint Replacement: No Neurologic Surgery: No Oral Surgery: No Pacemaker: No Thoracic Surgery: No Other Surgery: Yes (Lithotripsy) Social History Alcohol Use: No Tobacco Use: Yes (<1/2 PPD) Substance Use: No Allergies-Medications (Allergen,Severity, Reaction): Coded Allergies: Penicillins (Verified Allergy, Severe, HIVES, 03/04/18) metoclopramide (Unverified Allergy, Severe, PANIC ATTACK, 03/04/18) penicillin G (Unverified Allergy, Severe, HIVES, 03/04/18) tramadol (Verified Allergy, Severe, SZ, 03/04/18) cefaclor (Unverified Allergy, Intermediate, HIVES, 03/04/18) Reported Meds & Prescriptions Reported Meds & Active Scripts Active Percocet (Oxycodone-Acetaminophen) 5-325 mg Tab 1 Tab PO Q8HR PRN 5 Days Alprazolam 0.5 Mg Tab 0.5 Mg PO BID 0.5mg po bid x 14 days then 0.5mg po daily x 14 days then stop Reported Flomax (Tamsulosin HCl) 0.4 Mg Cap 0.4 Mg PO HS Amlodipine (Amlodipine Besylate) 10 Mg Tab 10 Mg PO DAILY Losartan (Losartan Potassium) 25 Mg Tab 25 Mg PO DAILY Review of Systems Except as stated in HPI: all other systems reviewed are Neg Physical Exam Narrative GENERAL: Well-developed, well-nourished, comfortable, no apparent distress. SKIN: Focused skin assessment warm/dry. No rash. HEAD: Atraumatic. Normocephalic. EYES: Pupils equal and round. No scleral icterus. No injection or drainage. ENT: No nasal bleeding or discharge. Mucous membranes pink and moist. NECK: Trachea midline. No JVD. CARDIOVASCULAR: Regular rate and rhythm. No murmur appreciated. RESPIRATORY: No accessory muscle use. Clear to auscultation. Breath sounds equal bilaterally. GASTROINTESTINAL: Abdomen soft, non-tender, nondistended. Hepatic and splenic margins not palpable. MUSCULOSKELETAL: No obvious deformities. No clubbing. No cyanosis. No edema. Moderate left CVA tenderness. No right CVA tenderness. No midline vertebral step-off or tenderness. NEUROLOGICAL: Awake and alert. No obvious cranial nerve deficits. Motor grossly within normal limits. Normal speech. PSYCHIATRIC: Appropriate mood and affect; insight and judgment normal. Data Data Last Documented VS Vital Signs Date Time Temp Pulse Resp B/P (MAP) Pulse Ox O2 Delivery O2 Flow Rate FiO2 03/04/18 22:18 108 18 137/89 (105) 97 Room Air 03/04/18 19:45 98.2 Orders Orders Urinalysis - C+S If Indicated (03/04/18 19:49) Complete Blood Count With Diff (03/04/18 21:00) Comprehensive Metabolic Panel (03/04/18 21:00) Iv Access Insert/Monitor (03/04/18 21:00) Ecg Monitoring (03/04/18 21:00) Oximetry (03/04/18 21:00) Sodium Chloride 0.9% Flush (Ns Flush) (03/04/18 21:00) Lipase (03/04/18 21:00) Morphine Inj (Morphine Inj) (03/04/18 21:00) Ondansetron Inj (Zofran Inj) (03/04/18 21:15) Morphine Inj (Morphine Inj) (03/04/18 22:00) Us Kidney/Renal/Bladder (03/04/18 ) Ketorolac Inj (Toradol Inj) (03/05/18 00:45) Morphine Inj (Morphine Inj) (03/05/18 00:45) Tamsulosin (Flomax) (03/05/18 00:45) Labs Laboratory Tests Test 03/04/18 19:50 03/04/18 21:00 Urine Color LIGHT-YELLOW Urine Turbidity CLEAR Urine pH 8.0 Urine Specific [place] 1.011 Urine Protein NEG mg/dL Urine Glucose (UA) NEG mg/dL Urine Ketones NEG mg/dL Urine Occult Blood NEG Urine Nitrite NEG Urine Bilirubin NEG Urine Urobilinogen LESS THAN 2.0 MG/DL Urine Leukocyte Esterase NEG Urine RBC 1 /hpf Urine WBC LESS THAN 1 /hpf Microscopic Urinalysis Comment CULT NOT INDICATED White Blood Count 13.7 TH/MM3 Red Blood Count 5.73 MIL/MM3 Hemoglobin 16.8 GM/DL Hematocrit 48.5 % Mean Corpuscular Volume 84.8 FL Mean Corpuscular Hemoglobin 29.3 PG Mean Corpuscular Hemoglobin Concent 34.6 % Red Cell Distribution Width 12.8 % Platelet Count 282 TH/MM3 Mean Platelet Volume 10.0 FL Neutrophils (%) (Auto) 65.8 % Lymphocytes (%) (Auto) 22.6 % Monocytes (%) (Auto) 7.9 % Eosinophils (%) (Auto) 3.2 % Basophils (%) (Auto) 0.5 % Neutrophils # (Auto) 9.0 TH/MM3 Lymphocytes # (Auto) 3.1 TH/MM3 Monocytes # (Auto) 1.1 TH/MM3 Eosinophils # (Auto) 0.4 TH/MM3 Basophils # (Auto) 0.1 TH/MM3 CBC Comment DIFF FINAL Differential Comment Blood Urea Nitrogen 9 MG/DL Creatinine 1.04 MG/DL Random Glucose 93 MG/DL Total Protein 8.3 GM/DL Albumin 4.4 GM/DL Calcium Level 9.6 MG/DL Alkaline Phosphatase 115 U/L Aspartate Amino Transf (AST/SGOT) 35 U/L Alanine Aminotransferase (ALT/SGPT) 83 U/L Total Bilirubin 0.4 MG/DL Sodium Level 139 MEQ/L Potassium Level 3.9 MEQ/L Chloride Level 104 MEQ/L Carbon Dioxide Level 26.0 MEQ/L Anion Gap 9 MEQ/L Estimat Glomerular Filtration Rate 82 ML/MIN Lipase 143 U/L [facility] Medical Decision Making Medical Screen Exam Complete: Yes Emergency Medical Condition: Yes Differential Diagnosis Nephrolithiasis, ureterolithiasis, pyelonephritis, musculoskeletal pain Narrative Course Vital signs reviewed. CBC: WBC 13.7, hemoglobin 16.8, hematocrit 48.5, platelets 282. CMP is unremarkable. Lipase is 143. UA is not suggestive of UTI, 1 RBC, negative occult blood. Renal ultrasound: Mild/moderate left hydronephrosis. Multiple nonobstructing calculi identified in the right. Patient had symptomatic relief with pain medication. Plan is to discharge him home with a prescription for Percocet and Zofran. He states he has Flomax at home. He will follow-up with his urologist Dr. Vasquez this week. He was advised on when to return to the emergency department. He verbalizes understanding and agreement with plan. Diagnosis Primary Impression: Acute left flank pain Referrals: Ollie Vasquez MD 3 days Additional Instructions: Follow-up with your urologist this week. Return to the emergency department for worsening symptoms or any other concerns. Scripts Ondansetron Odt (Zofran Odt) 4 Mg Tab 4 MG SL Q8HR Y for Nausea/Vomiting, #20 TAB 0 Refills Prov: Demarcus Jolley MD 03/05/18 Oxycodone-Acetaminophen (Percocet) 5-325 mg Tab 1 TAB PO Q6H Y for PAIN, #10 TAB 0 Refills Prov: Demarcus Jolley MD 03/05/18 Disposition: 01 DISCHARGE HOME Condition: Stable Demarcus Jolley MD Mar 04, 2018 21:02
[2018-03-04] MEDS: SODIUM CHLORIDE 0.9% FLUSH 10 ML FLUSH IV FLUSH PRN (21:15)
[2018-03-04] MEDS ORDERED: ONDANSETRON HCL 4 MG/2 ML VIAL IV PUSH ONE (21:15)
[2018-03-04 21:19] LABS: BILIRUBIN, URINE NEG (NEG); BLOOD, URINE NEG (NEG); GLUCOSE,URINE NEG (NEG); KETONE, URINE NEG (NEG); NITRITE,URINE NEG (NEG); URINE COLOR LIGHT-YELLOW (YELLW/STRAW); URINE LEUKOCYTE ESTERASE NEG (NEG)
[2018-03-04 21:37] LABS: BASOPHIL # 0.1 TH/MM3 (0-0.2); BASOPHIL % 0.5 % (0.0-2.0); EOSINOPHIL # 0.4 TH/MM3 (0-0.4); EOSINOPHIL % 3.2 % (0.0-4.0); HEMATOCRIT 48.5 % (39.0-51.0); HEMOGLOBIN 16.8 GM/DL (13.0-17.0); LYMPH % 22.6 % (9.0-44.0); LYMPHOCYTE # 3.1 TH/MM3 (1.0-4.8); MEAN CELL VOLUME 84.8 FL (80.0-100.0); MEAN CORPUSCULAR HEMOGLOBIN 29.3 PG (27.0-34.0); MEAN CORPUSCULAR HGB CONC 34.6 % (32.0-36.0); MONO % 7.9 % (0.0-8.0); MONOCYTE # 1.1 TH/MM3 (0-0.9); NEUT % 65.8 % (16.0-70.0); PLATELET COUNT 282 TH/MM3 (150-450); RED BLOOD COUNT 5.73 MIL/MM3 (4.50-5.90); RED CELL DISTRIBUTION WIDTH 12.8 % (11.6-17.2); WHITE BLOOD COUNT 13.7 TH/MM3 (4.0-11.0)
[2018-03-04 21:52] LABS: ALBUMIN 4.4 GM/DL (3.4-5.0); AST (GOT) 35 U/L (15-37); BLOOD UREA NITROGEN 9 MG/DL (7-18); CALCIUM 9.6 MG/DL (8.5-10.1); CHLORIDE 104 MEQ/L (98-107); CREATININE 1.04 MG/DL (0.60-1.30); GLOMERULAR FILTRATION RATE 82 ML/MIN (>89); GLUCOSE,RANDOM 93 MG/DL (74-106); SODIUM (NA) 139 MEQ/L (136-145)
[2018-03-04 21:53] LABS: ALT (GPT) 83 U/L (12-78)
[2018-03-04 21:55] LABS: ALKALINE PHOSPHATASE 115 U/L (45-117); TOTAL BILIRUBIN ADULT 0.4 MG/DL (0.2-1.0); TOTAL PROTEIN 8.3 GM/DL (6.4-8.2)
[2018-03-04 22:18] VITALS: BP 137/89; PULSE 108; RESP 18; O2SAT 97
--- NOTE | 2018-03-05 00:29 | RADRPT ---
EXAM DATE/TIME: 03/04/2018 23:01 [facility] COMPARISON: US KIDNEY/RENAL/BLADDER, March 21, 2016, 17:23. INDICATIONS : Left flank pain. MEDICAL HISTORY : Renal calculi. Hypertension. Depression. Anxiety. SURGICAL HISTORY : Nephrotomy. Cystoscopy. Lithotripsy. Ureteral stents. ENCOUNTER: Subsequent ACUITY: 1 day PAIN SCORE: 4/10 LOCATION: Bilateral flank MEASUREMENTS: RIGHT KIDNEY: 15.1 x 6.4 x 6.4 cm LEFT KIDNEY: 16.7 x 5.7 x 6.9 cm FINDINGS: RIGHT KIDNEY: Multiple echogenic foci within the right kidney with the largest measuring 9 mm in the midpole indica ting calculi. No evidence hydronephrosis on the right. LEFT KIDNEY: Mild to moderate left hydronephrosis. 3 mm simple cyst in the lower pole. No calculi identified on th e left. BLADDER: Within normal limits given the degree of distension. CONCLUSION: 1. Mild/moderate left hydronephrosis. 2. Multiple nonobstructing calculi identified on the right. Damir Ba MD on March 05, 2018 at 0:22 Board Certified Radiologist. This report was verified electronically.
[2018-03-05] MEDS ORDERED: PERC5TAB12 PO (00:37)
[2018-03-05] MEDS ORDERED: ZOFR4TAB3 SL (00:37)
[2018-03-05] MEDS ORDERED: MORPHINE SULFATE 2 MG/ML SYRINGE IV PUSH ONE (00:45)
[2018-03-05] MEDS ORDERED: KETOROLAC TROMETHAMINE 30 MG/ML (IVP) VIAL IV PUSH ONE (00:45)
[2018-03-05] MEDS ORDERED: TAMSULOSIN HCL 0.4 MG CAP PO ONE (00:45)
[2018-03-05 00:51] VITALS: BP 163/90; PULSE 108; RESP 16; O2SAT 98
[2018-03-05] MEDS: SODIUM CHLORIDE 0.9% FLUSH 10 ML FLUSH IV FLUSH PRN (00:55)
[2018-03-07] MEDS ORDERED: BACT800T5 PO (04:49)
[2018-03-07] MEDS ORDERED: NAPR500 PO (04:49)
== END 2018-03-05 01:13 | disposition home or self-care (01) ==
LOC: NEPC 18:57
DX: R10.9 Unspecified abdominal pain (principal); F90.9 Attention-deficit hyperactivity disorder, unspecified type; F32.9 Major depressive disorder, single episode, unspecified; F41.9 Anxiety disorder, unspecified; I10 Essential (primary) hypertension; F17.200 Nicotine dependence, unspecified, uncomplicated; Z87.442 Personal history of urinary calculi
CPT/HCPCS: 76775; 80053; 81001; 83690; 85025; 96374; 96375; 96376; 99284; J1885; J2270; J2405